=== PATIENT | male | born 1985 | race African-American/Black ===

== ENCOUNTER 2025-06-21 14:43 | Emergency (ER) | payer OTHER ==
[~2025-06-21] VITALS: Ht 177.8 cm; Wt 81.8 kg
[2025-06-21 14:46] VITALS: TEMP 98.2
[2025-06-21] MEDS: BACITRACIN 28 GM OINTMENT TP ONE (15:48)
[2025-06-21] MEDS: IBUPROFEN 600 MG TABLET PO ONE (15:48)
[2025-06-21] MEDS: ACETAMINOPHEN 500 MG TABLET PO ONE (15:49)
[2025-06-21] MEDS: PERTUSS(ACELL),DIPH,TET/PF 0.5 ML SYRINGE [ADULT] IM. ONE (15:53)
[2025-06-21 16:57] VITALS: BP 131/76; PULSE 92; RESP 18; O2SAT 99
== END 2025-06-21 17:02 | disposition home or self-care (01) ==
LOC: EMS 14:43
DX: S50.811A Abrasion of right forearm, initial encounter (principal); S50.311A Abrasion of right elbow, initial encounter; Z91.013 Allergy to seafood; W22.09XA Striking against other stationary object, initial encounter; Y93.89 Activity, other specified; Y92.89 Other specified places as the place of occurrence of the external cause; Y99.8 Other external cause status
CPT/HCPCS: 90471; 90715; 96372; 99284